=== PATIENT | male | born 1955 | race Caucasian/White ===

== ENCOUNTER 2022-02-14 12:19 | Emergency (ER) | payer BC ==
[2022-02-14] MEDS ORDERED: Cefepime 2 GM VIAL ONE (12:59)
[2022-02-14 13:20] LABS: PTT 34.6 sec (22.0-33.0); Prothrombin Time 11.2 sec (9.5-12.1)
[2022-02-14 13:24] LABS: ALT (SGPT) 15 U/L (8-55); AST (SGOT) 23 U/L (5-34); Albumin 4.1 g/dL (3.4-4.8); Alkaline Phosphatase 63 U/L (40-110); Anion Gap 14 mmol/L (10-20); BUN (Urea Nitrogen) 9 mg/dL (8.4-25.7); Bilirubin, Total 4.2 mg/dL (0.2-1.2); Calc. Creatinine Clearance 0 mL/min (70-130); Calcium 9.4 mg/dL (7.8-10.44); Carbon Dioxide 25 mmol/L (23-31); Chloride 100 mmol/L (98-107); Estimated GFR 99; Globulin 2.8 g/dL (2.4-3.5); Glucose 141 mg/dL (80-115); Magnesium 1.5 mg/dL (1.6-2.6); Potassium 3.5 mmol/L (3.5-5.1); Protein, Total 6.9 g/dL (5.8-8.1); Sodium 135 mmol/L (136-145)
[2022-02-14] MEDS ORDERED: Vancomycin 1 GM VIAL ONE (13:25)
[2022-02-14] MEDS ORDERED: Vancomycin HCl 500 MG VIAL ONE (13:25)
[2022-02-14 13:56] LABS: #Monocytes 1.4 10x3/uL (0.0-1.1); #Neutrophils 9.4 10x3/uL (1.5-8.4); %Basophils 0.2 % (0.0-2.0); %Eosinophils 0.1 % (0.0-6.0); %Lymphocytes 12.5 % (18.0-47.0); %Monocytes 11.4 % (0.0-10.0); %Neutrophils 75.5 % (40.0-75.0); Hemoglobin 13.1 g/dL (13.5-17.5); Mean Corpuscular HGB CONC 34.3 g/dL (32.0-36.0); Mean Corpuscular Hemoglobin 28.9 pg (27.0-33.0); Mean Corpuscular Volume 84.3 fl (81.2-95.1); Platelet Count 1 10x3/uL (150-450); RBC Distribution Width 12.8 % (11.5-14.5); Red Blood Cell (RBC) Count 4.53 10x6/uL (4.32-5.72); White Blood Cell (WBC) Count 12.5 10x3/uL (3.5-10.5)
[2022-02-14 14:16] LABS: SARS-CoV-2 NAA Rapid Test Not Detected (NotDetected)
[2022-02-14 14:25] LABS: Platelet Morphology Comment Appears Decreased
[2022-02-14 14:26] LABS: Reflex for Review?? YES
[2022-02-14] MEDS ORDERED: methylPREDNISolone Sod Succ/PF 125 MG/2 ML VIAL ONE (14:57)
[2022-02-14] MEDS ORDERED: IMMUNE GLOBULIN IVPB SCH (15:00)
== END 2022-02-14 17:43 | disposition short-term general hospital (02) ==
LOC: CSHERS 12:19
DX: I62.00 Nontraumatic subdural hemorrhage, unspecified (principal); D69.6 Thrombocytopenia, unspecified; R41.82 Altered mental status, unspecified; E11.9 Type 2 diabetes mellitus without complications; K21.9 Gastro-esophageal reflux disease without esophagitis; I10 Essential (primary) hypertension; Z20.822 Contact with and (suspected) exposure to COVID-19
CPT/HCPCS: 36415; 36430; 70450; 71045; 80053; 83010; 83605; 83615; 83735; 84484; 85025; 85060; 85384; 85610; 85730; 86850; 86900; 86901; 87040; 93005; 96365; 96366; 96375; J0692; J1568; J2930; J3370; P9035